=== PATIENT | male | born 1975 ===

== ENCOUNTER 2016-05-14 22:03 | Emergency (ER) | payer SELFPAY ==
[~2016-05-14] VITALS: Ht 177.8 cm; Wt 84.0 kg
[2016-05-14 22:06] VITALS: Ht 177.8 cm; Wt 84.0 kg
--- NOTE | 2016-05-15 00:13 | ERD ---
ER Documentation Chief Complaint Date/Time DATE: 05/15/16 TIME: 00:12 Chief Complaint left ear ache x 2weeks, headache HPI 40-year-old male comes in with left ear pain for 2 weeks and decreased hearing on that side. Patient describes inner ear pain, no radiation, no fevers, chills. He denies any URI symptoms, no history of diabetes. ROS All systems reviewed and are negative except as per history of present illness. Medications Home Meds Active Scripts Carbamide Peroxide* (Debrox*) 6.5% - 15 Ml Drops, 10 DROP LEFT EAR BID, #1 BOTTLE Prov:LIZET WINTERS PA-C 05/15/16 Ofloxacin Otic (Ofloxacin Otic) 5 Ml Drops, 5 DROP LEFT EAR BID for 7 Days, #1 BOTTLE Prov:LIZET WINTERS PA-C 05/15/16 Tramadol HCl (Tramadol HCl) 50 Mg Tablet, 50 MG PO Q4 Y for PAIN, #14 TAB Prov:LIZET WINTERS PA-C 05/15/16 Allergies Allergies: Coded Allergies: No Known Allergy (Unverified , 05/14/16) PMhx/Soc Medical and Surgical Hx: pt denies Medical Hx, pt denies Surgical Hx Hx Alcohol Use: No Hx Substance Use: No Hx Tobacco Use: No Smoking Status: Never smoker Physical Exam Vitals Vital Signs Date Time Temp Pulse Resp B/P Pulse Ox O2 Delivery O2 Flow Rate FiO2 05/14/16 22:06 98.3 64 20 147/72 100 Physical Exam General: Well-developed, well-nourished. The patient appears in no acute distress. HEENT: Head is normocephalic, atraumatic. No scleral icterus. There is cerumen impaction on the left ear, external ear is nontender, there is no otorrhea. No mastoid tenderness, right ear is unremarkable. Neck: Supple. Nontender. Lungs: Clear to auscultation. Normal air movement. Heart: Regular rate and rhythm. S1 and S2 are normal. No murmurs, gallops, or rubs. Abdomen: Nondistended. Extremities: No clubbing or cyanosis. Moving extremities x 4. No weakness. Neurologic: Alert and oriented 3. No focal deficits. Normal speech and gait. Skin: Normal turgor. No rash or lesions. Procedures/MDM ED course: Irrigation of the left ear was done, cerumen was able to be removed. MDM: 40-year-old male comes in with left ear cerumen impaction, was treated with irrigation here. Mild trauma noted from irrigation, there is no evidence of otitis media, tympanic membrane perforation, mastoiditis, cellulitis of the ear. Departure Diagnosis: Primary Impression: Impacted cerumen of left ear Condition: Good LIZET WINTERS PA-C May 15, 2016 00:13
[2016-05-15] MEDS ORDERED: CARB15DR48 LEFT EAR (01:20)
[2016-05-15] MEDS ORDERED: TRAM50TA2 PO (01:20)
[2016-05-15] MEDS ORDERED: OFLO5DRO7 LEFT EAR (01:20)
== END 2016-05-15 01:37 | disposition home or self-care (01) ==
LOC: FTE 22:03
DX: H61.22 Impacted cerumen, left ear (principal)